=== PATIENT | female | born 1965 | race Caucasian/White ===

== ENCOUNTER → 2016-12-21 10:31 | Emergency (ER) | payer SELFPAY | END | disposition home or self-care (01) | LOC: OHEAST 10:31 → UCEAST 10:31 | DX: Z02.1 Encounter for pre-employment examination (principal) ==

== ENCOUNTER 2017-04-08 16:12 | Emergency (ER) | payer SELFPAY ==
[2017-04-08 16:51] LABS: Hematocrit 40 % (35-47); Hemoglobin 13.1 g/dl (12.0-16.0); Mean Corpuscular HGB Conc 33 g/dl (31-36); Mean Corpuscular Hemoglobin 32 pg (27-31); Mean Corpuscular Volume 96 fL (80-97); Mean Platelet Volume 8 um3 (7.4-10.4); Red Cell Distribution Width 16 % (10.5-15); White Blood Count 6.6 10^3/ul (3.5-10.8)
[2017-04-08 17:03] LABS: ALT 15 U/L (7-52); AST 25 U/L (13-39); Albumin 4.4 g/dL (3.2-5.2); Alkaline Phosphatase 69 U/L (34-104); Anion Gap 16 mmol/L (2-11); BUN/Creatinine Ratio 22.9 (8-20); Blood Urea Nitrogen 19 mg/dL (6-24); CO2 Carbon Dioxide 21 mmol/L (22-32); Calcium 8.8 mg/dL (8.6-10.3); Chloride 104 mmol/L (101-111); EGFR African American 93.6 (>60); EGFR Non-African American 72.8 (>60); Globulin 2.6 g/dL (2-4); Glucose 89 mg/dL (70-100); Potassium 3.9 mmol/L (3.5-5.0); Sodium 141 mmol/L (133-145)
[2017-04-08 17:05] LABS: Urine Bacteria Absent (Absent); Urine Bilirubin Negative (Negative); Urine Glucose Negative (Negative); Urine Nitrite Negative (Negative)
[2017-04-08 17:10] LABS: Benzodiazepine Urine Screen None Detected (None Detect)
[2017-04-08 17:24] LABS: Acetaminophen < 15 mcg/mL; Alcohol 257 mg/dL (<10); Salicylate < 2.50 mg/dL (<30)
[2017-04-08 17:35] LABS: TSH (Thyroid Stimulating Horm) 0.79 mcIU/mL (0.34-5.60)
--- NOTE | 2017-04-08 18:11 | RAD ---
INDICATION: Head injury. COMPARISON: There are no prior studies available for comparison. TECHNIQUE: Contiguous axial sections of the brain were obtained from the skull base to the vertex without contrast. FINDINGS: The ventricles, cisterns and sulci are within normal limits. There is a roughly round 1 cm area of increased density in the medial right temporal lobe suggestive of a small area of intraparenchymal hemorrhage. No mass effect is seen. There is also a small amount of subarachnoid hemorrhage present in a posterior right parietal sulcus at the vertex. No other focal abnormalities are seen. No significant focal osseous abnormality is seen. The visualized portion of the paranasal sinuses and mastoid air cells appear clear. IMPRESSION: THERE IS A FOCAL AREA OF INCREASED DENSITY IN THE MEDIAL RIGHT TEMPORAL LOBE MOST CONSISTENT WITH A SMALL AREA OF PARENCHYMAL HEMORRHAGE. THIS IS AN UNUSUAL LOCATION FOR HEMORRHAGE THEREFORE RECOMMEND FOLLOW-UP STUDIES TO RESOLUTION TO EXCLUDE UNDERLYING LESION. THERE IS ALSO A SMALL AREA OF SUBARACHNOID HEMORRHAGE PRESENT AT THE VERTEX IN THE POSTERIOR RIGHT PARIETAL LOBE.
--- NOTE | 2017-04-08 20:44 | ED ---
Emilia Tripathi Edward, scribed for Mack Ogden MD on 04/08/17 at 1624 . Psychiatric Complaint - HPI Summary HPI Summary: 51 y/o female brought in by police c/o SI. The patient was fired at her job today. 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 When the police arrived at her residence, the patient became aggressive and threw things at the officer while screaming hysterically and slamming the door shut. The police then put her in handcuffs. Per EMS, the pt would have periods of aggression immediately followed by periods of calm where she said she just wanted to go swimming. Associated sx: aggression, hostility towards police. Pt recently moved from [place] and is previously healthy. - History Of Current Complaint Time Seen by Provider: 04/08/17 16:19 Hx Obtained From: Patient, EMS, Other: - Police Hx Last Menstrual Period: NA Onset/Duration: Lasting Hours Character: Fearful, Anxious Aggravating Factor(s): Recent Stress - Recently fired Associated Signs And Symptoms: Positive: Hostile Has Suicidal: Reports: Thoughts - Allergies/Home Medications Allergies/Adverse Reactions: Allergies Allergy/AdvReac Type Severity Reaction Status Date / Time No Known Allergies Allergy Verified 12/21/16 12:24 PMH/Surg Hx/FS Hx/Imm Hx Previously Healthy: Yes - Surgical History Surgery Procedure, Year, and Place: None Infectious Disease History: No - Social History Occupation: Unemployed Lives: Alone - Recently moved from [place] Alcohol Use: Occasionally Hx Substance Use: No Substance Use Type: Reports: None Hx Tobacco Use: No Smoking Status (MU): Never Smoked Tobacco Review of Systems Constitutional: Negative Eyes: Negative ENT: Negative Cardiovascular: Negative Respiratory: Negative Gastrointestinal: Negative Genitourinary: Negative Musculoskeletal: Negative Skin: Negative Neurological: Negative Psychological: Other - SI, aggressive, hostile (per police) All Other Systems Reviewed And Are Negative: Yes Physical Exam Triage Information Reviewed: Yes Vital Signs On Initial Exam: Initial Vitals Temp Pulse Resp BP 98.4 F 92 20 116/82 04/08/17 17:26 04/08/17 17:26 04/08/17 17:26 04/08/17 17:26 Vital Signs Reviewed: Yes Appearance: Positive: Well-Appearing, No Pain Distress Skin: Positive: Warm, Skin Color Reflects Adequate Perfusion, Dry Head/Face: Positive: Normal Head/Face Inspection Eyes: Positive: Normal ENT: Positive: Normal ENT inspection Neck: Positive: Supple, Nontender Respiratory/Lung Sounds: Positive: Clear to Auscultation, Breath Sounds Present Cardiovascular: Positive: RRR Abdomen Description: Positive: Nontender, Soft Bowel Sounds: Positive: Present Musculoskeletal: Positive: Normal Neurological: Positive: Normal Psychiatric: Positive: Other - Labile affect Diagnostics - Vital Signs Vital Signs Temp Pulse Resp BP Pulse Ox 04/08/17 17:32 98.4 F 92 20 116/78 98 04/08/17 17:26 98.4 F 92 20 116/82 - Laboratory Lab Results: Lab Results 04/08/17 04/08/17 04/08/17 Range/Units 16:35 16:35 16:45 WBC 6.6 (3.5-10.8) 10^3/ul RBC 4.10 (4.0-5.4) 10^6/ul Hgb 13.1 (12.0-16.0) g/dl Hct 40 (35-47) % MCV 96 (80-97) fL MCH 32 H (27-31) pg MCHC 33 (31-36) g/dl RDW 16 H (10.5-15) % Plt Count 306 (150-450) 10^3/ul MPV 8 (7.4-10.4) um3 Neut % (Auto) 70.1 (38-83) % Lymph % (Auto) 23.3 L (25-47) % Schley % (Auto) 3.8 (1-9) % Eos % (Auto) 0.8 (0-6) % Baso % (Auto) 2.0 (0-2) % Absolute Neuts (auto) 4.7 (1.5-7.7) 10^3/ul Absolute Lymphs (auto) 1.5 (1.0-4.8) 10^3/ul Absolute Monos (auto) 0.3 (0-0.8) 10^3/ul Absolute Eos (auto) 0.1 (0-0.6) 10^3/ul Absolute Basos (auto) 0.1 (0-0.2) 10^3/ul Absolute Nucleated RBC 0 10^3/ul Nucleated RBC % 0 Sodium 141 (133-145) mmol/L Potassium 3.9 (3.5-5.0) mmol/L Chloride 104 (101-111) mmol/L Carbon Dioxide 21 L (22-32) mmol/L Anion Gap 16 H (2-11) mmol/L BUN 19 (6-24) mg/dL Creatinine 0.83 (0.51-0.95) mg/dL Est GFR ( Amer) 93.6 (>60) Est GFR (Non-Af Amer) 72.8 (>60) BUN/Creatinine Ratio 22.9 H (8-20) Glucose 89 (70-100) mg/dL Calcium 8.8 (8.6-10.3) mg/dL Total Bilirubin 0.30 (0.2-1.0) mg/dL AST 25 (13-39) U/L ALT 15 (7-52) U/L Alkaline Phosphatase 69 (34-104) U/L Total Protein 7.0 (6.4-8.9) g/dL Albumin 4.4 (3.2-5.2) g/dL Globulin 2.6 (2-4) g/dL Albumin/Globulin Ratio 1.7 (1-3) TSH 0.79 (0.34-5.60) mcIU/mL Beta HCG, Quant 0.84 mIU/mL Urine Color Yellow Urine Appearance Clear Urine pH 5.0 (5-9) Ur Specific [place] 1.018 (1.010-1.030) Urine Protein Negative (Negative) Urine Ketones Trace H (Negative) Urine Blood 1+ H (Negative) Urine Nitrate Negative (Negative) Urine Bilirubin Negative (Negative) Urine Urobilinogen Negative (Negative) Ur Leukocyte Esterase 1+ H (Negative) Urine WBC (Auto) 1+(6-10/hpf) H (Absent) Urine RBC (Auto) Trace(0-2/hpf) (Absent) Ur Squamous Epith Cells Present H (Absent) Urine Bacteria Absent (Absent) Hyaline Casts Present H (Absent) Urine Glucose Negative (Negative) Salicylates < 2.50 (<30) mg/dL Urine Opiates Screen (None Detect) Acetaminophen < 15 mcg/mL Ur Barbiturates Screen (None Detect) Ur Phencyclidine Scrn (None Detect) Ur Amphetamines Screen (None Detect) U Benzodiazepines Scrn (None Detect) Urine Cocaine Screen (None Detect) U Cannabinoids Screen (None Detect) Serum Alcohol 257 H (<10) mg/dL 04/08/17 Range/Units 16:45 WBC (3.5-10.8) 10^3/ul RBC (4.0-5.4) 10^6/ul Hgb (12.0-16.0) g/dl Hct (35-47) % MCV (80-97) fL MCH (27-31) pg MCHC (31-36) g/dl RDW (10.5-15) % Plt Count (150-450) 10^3/ul MPV (7.4-10.4) um3 Neut % (Auto) (38-83) % Lymph % (Auto) (25-47) % Schley % (Auto) (1-9) % Eos % (Auto) (0-6) % Baso % (Auto) (0-2) % Absolute Neuts (auto) (1.5-7.7) 10^3/ul Absolute Lymphs (auto) (1.0-4.8) 10^3/ul Absolute Monos (auto) (0-0.8) 10^3/ul Absolute Eos (auto) (0-0.6) 10^3/ul Absolute Basos (auto) (0-0.2) 10^3/ul Absolute Nucleated RBC 10^3/ul Nucleated RBC % Sodium (133-145) mmol/L Potassium (3.5-5.0) mmol/L Chloride (101-111) mmol/L Carbon Dioxide (22-32) mmol/L Anion Gap (2-11) mmol/L BUN (6-24) mg/dL Creatinine (0.51-0.95) mg/dL Est GFR ( Amer) (>60) Est GFR (Non-Af Amer) (>60) BUN/Creatinine Ratio (8-20) Glucose (70-100) mg/dL Calcium (8.6-10.3) mg/dL Total Bilirubin (0.2-1.0) mg/dL AST (13-39) U/L ALT (7-52) U/L Alkaline Phosphatase (34-104) U/L Total Protein (6.4-8.9) g/dL Albumin (3.2-5.2) g/dL Globulin (2-4) g/dL Albumin/Globulin Ratio (1-3) TSH (0.34-5.60) mcIU/mL Beta HCG, Quant mIU/mL Urine Color Urine Appearance Urine pH (5-9) Ur Specific [place] (1.010-1.030) Urine Protein (Negative) Urine Ketones (Negative) Urine Blood (Negative) Urine Nitrate (Negative) Urine Bilirubin (Negative) Urine Urobilinogen (Negative) Ur Leukocyte Esterase (Negative) Urine WBC (Auto) (Absent) Urine RBC (Auto) (Absent) Ur Squamous Epith Cells (Absent) Urine Bacteria (Absent) Hyaline Casts (Absent) Urine Glucose (Negative) Salicylates (<30) mg/dL Urine Opiates Screen None detected (None Detect) Acetaminophen mcg/mL Ur Barbiturates Screen None detected (None Detect) Ur Phencyclidine Scrn None detected (None Detect) Ur Amphetamines Screen None detected (None Detect) U Benzodiazepines Scrn None detected (None Detect) Urine Cocaine Screen None detected (None Detect) U Cannabinoids Screen None detected (None Detect) Serum Alcohol (<10) mg/dL Result Diagrams: 04/08/17 16:35 04/08/17 16:35 Lab Statement: Any lab studies that have been ordered have been reviewed, and results considered in the medical decision making process. - CT BRAIN CT CT Interpretation: Positive (See Comments) - THERE IS A FOCAL AREA OF INCREASED DENSITY IN THE MEDIAL RIGHT TEMPORAL LOBE MOST CONSISTENT WITH A SMALL AREA OF PARENCHYMAL HEMORRHAGE. THIS IS AN UNUSUAL LOCATION FOR HEMORRHAGE THEREFORE RECOMMEND FOLLOW-UP STUDIES TO RESOLUTION TO EXCLUDE UNDERLYING LESION. THERE IS ALSO A SMALL AREA OF SUBARACHNOID HEMORRHAGE PRESENT AT THE VERTEX IN THE POSTERIOR RIGHT PARIETAL LOBE. CT Interpretation Completed By: Radiologist Course/Dx - Course Course Of Treatment: Ms. Soriano was brought in as a 941 after getting fired from her job today, calling them repeatedly and expressing possible suicidality , and getting restrained by the police. She was found to be intoxicated here and at one point vomited. She then reported hitting the right side of her head during the restraint. She was nontender with no sign of trauma still but CT was obtained which showed a small parenchymal hemorrhage and a small SAH. Dr. Moise was contacted and reviewed the CT. He recommended admission for observation and repeat CT. Unfortunately, he is leaving for vacation and would not be available for her so recommended transfer. Anna was contacted but was on diversion and Dr. Aguilera at [facility] accepted her. She will be sent by ground and has been very stable here for 4 hours. - Differential Dx/Clinical Impression Provider Diagnosis: Subarachnoid hemorrhage, Cerebral parenchymal hemorrhage, Alcohol intoxication Discharge - Discharge Plan Condition: Stable Disposition: TRANS HIGHER LVL OF CARE FAC Referrals: No Primary Care Phys,NOPCP [Primary Care Provider] - The documentation as recorded by the Emilia levin Edward accurately reflects the service I personally performed and the decisions made by me, Mack Ogden MD.
== END 2017-04-08 21:24 | disposition short-term general hospital (02) ==
LOC: ED 16:12
DX: I60.9 Nontraumatic subarachnoid hemorrhage, unspecified (principal); I61.9 Nontraumatic intracerebral hemorrhage, unspecified; Z04.8 Encounter for examination and observation for other specified reasons; Z32.02 Encounter for pregnancy test, result negative; R45.851 Suicidal ideations; R45.5 Hostility; F10.129 Alcohol abuse with intoxication, unspecified; Y90.8 Blood alcohol level of 240 mg/100 ml or more
CPT/HCPCS: 36415; 70450; 80053; 80307; 80320; 80329; 81003; 81015; 84443; 84702; 85025; 87086; 99285; G0480

== ENCOUNTER 2018-08-30 05:11 | Emergency (ER) | payer SELFPAY ==
[2018-08-30] MEDS ORDERED: oxyCODONE/Acetamin 5/325 MG* TAB PO ONE (05:24)
--- NOTE | 2018-08-30 05:31 | ED ---
Upper Extremity Pain - HPI Summary HPI Summary: This patient is a 53 year old F presenting to [facility] with a chief complaint of left wrist swelling and pain with mild deformity. Patient reports history of night terrors and she believes she hit her arm on her night stand during a night terror. Pain is 3/10 upon triage. - History of Current Complaint Chief Complaint: EDExtremityUpper Stated Complaint: LEFT WRIST INJURY Time Seen by Provider: 08/30/18 05:20 Hx Obtained From: Patient Hx Last Menstrual Period: NA Mechanism Of Injury: Unknown Onset/Duration: Started Hours Ago Timing: Constant Severity Initially: Moderate Severity Currently: Moderate Pain Location: Forearm Alleviating Factor(s): Nothing Associated Signs & Symptoms: Positive: Swelling - Allergies/Home Medications Allergies/Adverse Reactions: Allergies Allergy/AdvReac Type Severity Reaction Status Date / Time No Known Allergies Allergy Verified 12/21/16 12:24 PMH/Surg Hx/FS Hx/Imm Hx Opthamlomology History: Denies: Hx Legally Blind EENT History: Denies: Hx Deafness Psychiatric History: Reports: Other Psychiatric Issues/Disorders - night terrors - Surgical History Surgery Procedure, Year, and Place: None Infectious Disease History: No Infectious Disease History: Denies: Traveled Outside the [place] in Last 30 Days - Family History Known Family History: Positive: Non-Contributory - Social History Alcohol Use: Occasionally Hx Substance Use: No Substance Use Type: Reports: None Hx Tobacco Use: No Smoking Status (MU): Never Smoked Tobacco Review of Systems Constitutional: Negative Negative: Fever Positive: Myalgia - left wrist pain All Other Systems Reviewed And Are Negative: Yes Physical Exam - Summary Physical Exam Summary: Appearance: Well-appearing, Well-nourished, lying in bed comfortably Skin: Warm, dry, no obvious rash Eyes: sclera anicteric, no conjunctival pallor ENT: mucous membranes moist, pharynx appears normal Neck: Supple, nontender Respiratory: Clear to auscultation, no signs of respiratory distress Cardiovascular: Normal S1, S2. No murmurs. Normal distal pulses in tibial and radial bilaterally. Abdomen: Soft, nontender, normal active bowel sounds present Musculoskeletal: Strength/ROM Intact, Right wrist swollen and tender with dorsal angulation deformity Neurological: A&Ox3, awake and alert, mentation is normal, speech is fluent and appropriate Psychiatric: affect is normal, does not appear anxious or depressed Triage Information Reviewed: Yes Vital Signs On Initial Exam: Initial Vitals Temp Pulse Resp BP Pulse Ox 97.3 F 93 22 121/98 98 08/30/18 05:14 08/30/18 05:14 08/30/18 05:14 08/30/18 05:14 08/30/18 05:14 Vital Signs Reviewed: Yes Procedures - Procedure Summary Procedure Summary: Hematoma block with a mix of Epinepherine and Lidocaine, 3cc injected into hematoma - Splinting left wrist Location: left forearm Pre-Made Type: OCL Material Pre-Proc Neuro Vasc Exam: normal Post-Proc Neuro Vasc Exam: normal Diagnostics - Vital Signs Vital Signs Temp Pulse Resp BP Pulse Ox 08/30/18 05:14 97.3 F 93 22 121/98 98 - Laboratory Lab Statement: Any lab studies that have been ordered have been reviewed, and results considered in the medical decision making process. - Radiology L Wrist XR Radiology Interpretation Completed By: ED Physician Summary of Radiographic Findings: Colles fracture with minimal impactment and displacement Course/Dx - Course Course Of Treatment: 53 year old F presenting to [facility] with a chief complaint of left wrist swelling and pain with mild deformity. Patient reports history of night terrors and she believes she hit her arm on her night stand during a night terror. Upon exam left wrist is swollen and tender with dorsal angulation deformity. XR reveals colles fracture with minimal impaction and displacement. A hematoma block performed with a mi of bupivicaine and lidocaine with epi, injected 3cc into hematoma. Left forearm splinted with OCL material. Patient is given oxycodone for pain. Patient is instructed to follow up with Dr. St, to ice/elevate the wrist, and to stagger her Xanax and Oxycodone prescription to prevent heavy sedation. - Diagnoses Provider Diagnoses: Colles' fracture of left radius, initial encounter for closed fracture Discharge - Sign-Out/Discharge Documenting (check all that apply): Patient Departure - dishcharge - Discharge Plan Condition: Good Disposition: HOME Prescriptions: oxyCODONE/Acetamin 5/325 MG* [Percocet 5/325 TAB*] 1 tab PO Q4H PRN #15 tab MDD 6 tabs PRN Reason: Pain Patient Education Materials: Wrist Fracture in Adults (ED) Referrals: Stephon St MD [Medical Doctor] - Additional Instructions: Please contact Dr. St' office this morning to arrange an appt for early next week. They usually will put a cast on you once the swelling has come down over the weekend. Keep the arm elevated as much as possible and ice it frequently, that will help with swelling and pain as well. Stagger your xanax and the pain medication so you don't get too sedated, they should not be taken within a couple of hours of each other. - Billing Disposition and Condition Condition: GOOD Disposition: Home - Attestation Statements Document Initiated by Cameron: Yes Documenting Scribe: Yesica Cao Provider For Whom Cameron is Documenting (Include Credential): Mack Beard MD Scribe Attestation: I, Yesica Cao, scribed for Mack Beard MD on 08/30/18 at 1834. Scribe Documentation Reviewed: Yes Provider Attestation: The documentation as recorded by the Yesica levin accurately reflects the service I personally performed and the decisions made by me, Mack Beard MD Status of Scribe Document: Viewed
[2018-08-30 06:59] VITALS: BP 134/77
== END 2018-08-30 06:45 | disposition home or self-care (01) ==
LOC: ED 05:11
DX: S52.532A Colles' fracture of left radius, initial encounter for closed fracture (principal); W22.03XA Walked into furniture, initial encounter; Y92.9 Unspecified place or not applicable; R60.9 Edema, unspecified
CPT/HCPCS: 25680; 99282; A9270-GY

== ENCOUNTER 2018-09-11 07:09 | Inpatient (IN) | payer MEDICAID ==
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
[2018-09-11 07:58] LABS: ABS Basophils 0.1 10^3/ul (0-0.2); ABS Eosinophils 0.1 10^3/ul (0-0.6); ABS Lymphocytes 1.3 10^3/ul (1.0-4.8); ABS Nucleated RBC 0 10^3/ul; Eosinophil % 0.9 %; Hematocrit 36 % (35-47); Hemoglobin 12.1 g/dl (12.0-16.0); Lymphocyte % 11.1 %; Mean Corpuscular HGB Conc 33 g/dl (31-36); Mean Corpuscular Hemoglobin 35 pg (27-31); Mean Corpuscular Volume 105 fL (80-97); Mean Platelet Volume 7.6 fL (7.4-10.4); Nucleated Red Blood Cells % 0; Platelet Count 285 10^3/ul (150-450); Red Blood Count 3.47 10^6/ul (4.00-5.40); Red Cell Distribution Width 15 % (10.5-15); White Blood Count 11.4 10^3/ul (3.5-10.8)
[2018-09-11 08:11] LABS: ALT 18 U/L (7-52); AST 32 U/L (13-39); Albumin 3.8 g/dL (3.2-5.2); Albumin/Globulin Ratio 1.3 (1-3); Alkaline Phosphatase 67 U/L (34-104); Anion Gap 16 mmol/L (2-11); Blood Urea Nitrogen 16 mg/dL (6-24); CO2 Carbon Dioxide 18 mmol/L (22-32); Calcium 9.8 mg/dL (8.6-10.3); Chloride 101 mmol/L (101-111); EGFR Non-African American 75.3 (>60); Glucose 84 mg/dL (70-100); Potassium 3.9 mmol/L (3.5-5.0); Sodium 135 mmol/L (135-145); Total Protein 6.8 g/dL (6.4-8.9)
[2018-09-11 08:14] LABS: Urine Appearance Cloudy; Urine Bacteria Absent (Absent); Urine Bilirubin 2+ (Negative); Urine Blood Negative (Negative); Urine Color Amber; Urine Glucose Negative (Negative); Urine Ketones 2+ (Negative); Urine Nitrite Negative (Negative); Urine Protein 2+(100 mg/dL) (Negative); Urine Red Blood Cell Absent (Absent); Urine Specific Gravity 1.028 (1.010-1.030); Urine Urobilinogen Negative (Negative); Urine White Blood Cell 3+(>20/hpf) (Absent)
[2018-09-11 08:21] LABS: Barbiturates Urine Screen None Detected (None Detect); Benzodiazepine Urine Screen None Detected (None Detect); Urine Cannabinoids Screen None Detected (None Detect)
[2018-09-11 08:48] LABS: Acetaminophen < 15 mcg/mL; Alcohol < 10 mg/dL (<10); Salicylate < 2.50 mg/dL (<30)
[2018-09-11 09:04] LABS: TSH (Thyroid Stimulating Horm) 2.22 mcIU/mL (0.34-5.60)
[2018-09-11] MEDS ORDERED: Al Hydrox/Mg Hydrox/Simet LIQ* 30 ML UDC PO PRN (11:57)
[2018-09-11] MEDS ORDERED: Haloperidol TAB* 5 MG PO PRN (11:59)
[2018-09-11] MEDS ORDERED: hydrOXYzine HCL TAB* 50 MG PO PRN (12:00)
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
[2018-09-11] MEDS: Propranolol TAB* 40 MG PO SCH ×2 (18:03→20:23)
[2018-09-11] MEDS: Acetaminophen TAB* 325 MG PO PRN (20:23)
--- NOTE | 2018-09-12 00:19 | EEG ---
ELECTROENCEPHALOGRAPHY: DATE OF STUDY: 09/11/18 REFERRING PHYSICIAN: Dr. Cueva. LOCATION: She is in the emergency room. CLINICAL PROBLEM: The patient called the police because of seeing animals and perhaps people in her home. She was recently prescribed some new medications. MEDICATIONS: Current medications listed include: 1. Hydroxyzine. 2. Haloperidol. 3. Citalopram. 4. Propranolol. REPORT: This 16-channel EEG is remarkable for background rhythms consisting of a occipital rhythm of about 8.5 to 9 cycles per second, which is symmetric. Abundant bifrontal beta rhythms are seen bifrontally. Movement artifact is seen episodically throughout the recording. Activation procedures are not attempted. The patient laughs spontaneously late in the recording and then makes a fairly tangential statement to the anaesthetic technician. There are no other clinical events. There are no focal, lateralized, or epileptiform abnormalities. CLINICAL IMPRESSION: Normal awake EEG. [id number]/[facility] #: [id number] MTDD
[2018-09-12] MEDS: Acetaminophen TAB* 325 MG PO PRN ×2 (07:40→12:46)
[2018-09-12] MEDS ORDERED: Citalopram TAB* 20 MG PO SCH (09:00)
[2018-09-12] MEDS: Propranolol TAB* 40 MG PO SCH ×2 (09:04→20:16)
[2018-09-12] MEDS ORDERED: Calcium Carbonate CHEW TAB* 500 MG (TUMS) PO PRN (11:16)
[2018-09-12] MEDS: DULoxetine DR CAP* 60 MG CAP.DR PO SCH (12:45)
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
--- NOTE | 2018-09-12 14:49 | HP ---
HISTORY AND PHYSICAL: DATE OF ADMISSION: 09/11/18 SUPERVISING PSYCHIATRIST: Dr. Kojo Harris.* (DICTATED BYCARRIE ESPINOZA NP) JUSTIFICATION FOR ADMISSION: The patient presented to the emergency department via police due to numerous 911 calls that included delusional statements and auditory and visual hallucinations. While in the emergency department, she was evaluated by Neurology and deemed appropriate for psychiatric admission. The patient merits hospitalization for immediate safety and stabilization. CHIEF COMPLAINT: "I took an oxycodone and now I am here." HISTORY OF PRESENT ILLNESS: Berna is a 53-year-old white female with a history of depression and anxiety, who presented to the emergency department in a psychotic state. Today, she is well related, alert and oriented with no reports of psychotic symptoms. She reports a history of being sensitive to prescription medications. She is awaiting surgery for wrist fracture and was prescribed oxycodone. She states that she took this medicine for the first time a few nights ago and woke up at 3 a.m. in the midst of a sleep wake state. She states this happened again prior to presentation. She identifies that she was likely in a dream state, but awake. She thought someone was in her trailer and she reported seeing strange people and made bizarre statements about her cats being mimes. The patient reports a history of being prescribed Zoloft as early as 1999 and noted an onset of tremor. This was changed to Celexa and she is continued to have the tremor since then. She is prescribed propranolol, which is mildly effective. The patient denies a history of suicidal ideation or self-harm. She denies a history of HI, or aggression. She endorses severe insomnia and generalized anxiety. The patient relates that in March 2017, police were given wrong information during a welfare check. During this encounter, the patient had stayed home from work and her employer called for a welfare check. She initially did not let the police come in due to being guarded and then police showed up with more resulting in her being aggressively apprehended. She states that she was having a nightmare about that incident when she sustained an injury to her wrist. She is scheduled to have surgical repair today. While in the emergency room, the patient was assessed by Neurology due to new presentation. They obtained an EEG and ruled out current seizure activity. The patient denies obsessions or compulsions. She denies phobias other than generalized anxiety. She denies a history of gila. She denies having access to firearms. She denies auditory or visual hallucinations and there are no perceptual disturbances noted today. PAST PSYCHIATRIC HISTORY: The patient denies history of inpatient psychiatric treatment. She reports seeing a private therapist from 1999 to 2011 after her father . She reports seeing a neurologist in the past for migraine headaches as well as depression. She is not currently in outpatient therapy, but is hoping to be reconnected. PSYCHIATRIC MEDICATION HISTORY: Sertraline stopped due to tremor, citalopram, propranolol, alprazolam p.r.n. TRAUMA ABUSE HISTORY: The patient denies history of abuse. Her mother of colon cancer when the patient was 16 years old. Her father in 1999 of myocardial infarction and interaction with police in March 2017 as stated above. PAST MEDICAL HISTORY: History of migraine headaches, history of GERD. PAST SURGICAL HISTORY: None other than colonoscopy. PRIMARY CARE PROVIDER: MADHURI Dickinson, in [place]. CURRENT MEDICATIONS: 1. Oxycodone 5 mg p.o. q.6 hours p.r.n. 2. Propranolol 40 mg p.o. b.i.d. 3. Ondansetron 8 mg p.o. p.r.n. nausea. 4. Citalopram 20 mg daily. 5. Alprazolam 0.25 mg p.o. b.i.d. p.r.n. FAMILY PSYCHIATRIC HISTORY: The patient reports her family are all "worriers." She denies other known mental health history in the family. SOCIAL HISTORY: The patient is the youngest of 3 daughters by parents who were until her mother . She graduated high school and is highly educated. She has an MFA in [employer] and a master's in her education. 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 Her sister lives in the area and Berna relocated to this area early 2016. She is never , has no children. She identifies as heterosexual, is not currently dating. She denies a history of legal or involvement. She denies taoist affiliation. She reports alcohol use 2 glasses twice a week. She denies marijuana, tobacco or other substance use. REVIEW OF SYSTEMS: Constitutional: Negative. No fever, chills or fatigue. ENT : Negative. Cardiovascular: Negative. Denies chest pain or palpitations. Respiratory: Negative. Denies shortness of breath or cough. Genitourinary: Negative. Musculoskeletal: Positive for essential tremor. Neurological: Negative. PHYSICAL EXAMINATION GENERAL: The patient is well appearing and well nourished. VITAL SIGNS: T 97.7, P 85, respiration rate 16, O2 sat 100%, BP 104/58. HEENT: Normal head and face inspection. Eyes positive. EOMI, PERRL. Conjunctivae clear. NECK: Supple. Full ROM. Trachea midline. RESPIRATORY: Lung sounds clear to auscultation. Breath sounds present. CARDIOVASCULAR: Heart, RRR. Pulses are symmetrical in both upper and lower extremities. MUSCULOSKELETAL: Normal strength. ROM intact. Positive bilateral hand tremor. NEUROLOGICAL: Normal sensory and motor intact. Alert and oriented x3. Normal gait. Cerebellar function intact. SKIN: Warm and dry. Color reflects adequate perfusion. LABORATORY DATA: CBC noteworthy for elevated WBC and low RBC 11.4 and 3.47, MCV 105, MCH 35, absolute neutrophils 9.0, absolute mono 1.0. Chemistry: Carbon dioxide 18, anion gap 16, otherwise within normal limits. TSH normal at 2.22. Urinalysis: Positive for proteins, ketones, bilirubin, leukocyte esterase , wbc, squamous epithelial cells, crystals, and hyaline casts. Toxicology negative for salicylates, acetaminophen or alcohol. Urine drug screen is negative, which is consistent with patient report. MENTAL STATUS EXAM: The patient is a 53-year-old white female, thin framed, petite, who appears younger than stated age. She is well groomed. She is adequately groomed, wearing casual clothing from unit donations. She sits in chair opposite to interviewer, is pleasant and cooperative, appears to be a good historian. She is alert and oriented x3. Eye contact is good. Speech is soft, articulate and quivery. Mood is anxious with congruent affect. Bilateral hand tremor present. Thought process is logical, coherent. Thought content is negative for SI, HI, or passive wish. She denies auditory or visual hallucinations. She is well related. Insight and judgment are fair. Fund of knowledge is excellent. DIAGNOSES: Medication-induced psychosis, resolved; post-traumatic stress disorder; major depressive disorder with anxious distress. ASSESSMENT: Berna is a 53-year-old white female who relocated to the area almost 2 years ago. She presented to the ED with acute onset psychosis. She reports this was likely due to oxycodone as she is sensitive to medications. She reports that her sister worries about alcohol use. She denies this is problematic. While in the emergency department, she was evaluated by Neurology and received an EEG. The patient reports significant traumatic event regarding police in March 2017. She states that she was having a nightmare about this interaction when she broke her wrist 3 weeks ago. She was scheduled to have surgery today. She reports a history of therapy and that this was helpful to her. She is eager to be connected to mental health services in this area. In the meantime, she is agreeable to remain hospitalized for diagnostic clarification and stabilization. PLAN: The patient is admitted to adult behavioral services unit on involuntary status. Her code status is full. She is placed on 15-minute checks for her safety. She is encouraged to participate in supportive milieu, individual sessions with staff and educational groups. We will obtain an MMPI for diagnostic clarification. We will consider changing to an SNRI to better target anxiety along with depression and assess effect on tremor. We will consider tapering propranolol if tremor improves. The patient denies pain medications other than ibuprofen. I have spoken with Dr. Jean Baptiste through orthopedist, she will receive a consult today and will need to reschedule surgery. I would like to obtain a clean catch midstream urine sample to assess validity of previous urine sample and consider treatment for UTI. Estimated length of stay is 4 to 5 days. Discharge planning will include referral to outpatient mental health services and coordination with current outpatient providers. CARRIE ESPINOZA, TOMAS [id number]/[facility] #: [id number] GIL
[2018-09-12] MEDS: Ibuprofen TAB* 800 MG PO PRN (20:15)
[2018-09-13 08:13] LABS: HDL Cholesterol 56.2 mg/dL
[2018-09-13] MEDS: DULoxetine DR CAP* 60 MG CAP.DR PO SCH (08:41)
[2018-09-13] MEDS: Propranolol TAB* 40 MG PO SCH ×2 (08:41→20:34)
[2018-09-13] MEDS: Ibuprofen TAB* 800 MG PO PRN ×2 (08:42→17:48)
[2018-09-14] MEDS: Ibuprofen TAB* 800 MG PO PRN ×3 (08:22→21:23)
[2018-09-14] MEDS: DULoxetine DR CAP* 60 MG CAP.DR PO SCH (08:22)
[2018-09-14] MEDS: Propranolol TAB* 40 MG PO SCH ×2 (08:22→21:20)
[2018-09-15] MEDS: Ibuprofen TAB* 800 MG PO PRN ×3 (07:26→23:25)
[2018-09-15] MEDS: DULoxetine DR CAP* 60 MG CAP.DR PO SCH (08:52)
[2018-09-15] MEDS: Propranolol TAB* 40 MG PO SCH ×2 (12:06→21:36)
--- NOTE | 2018-09-15 14:00 | PN ---
Subjective - Subjective Date of Service: 09/15/18 Service Type: 32446 Hosp care 15 min low complexity Subjective: Patient seen for Ngoc Hodges NP. Patient reports " I am fine". She is worried that her appointment will be made before tomorrow. She worries about her ortho appointment and how she may react to pain medication if she has to get surgery. Patient reports attending to group. She reports eating and sleeping adequately. No overnight events or PRN medications. Denied suicidal and or homicidal ideation intent or plan. Objective - Appearance Appearance: Healthy Appearing Dysmorphic Features: No Hygiene: Normal Grooming: Fairly Well Kept - Behavior Psychomotor Activities: Normal Exhibits Abnormal Movement: No - Attitude and Relatedness Attitude and Relatedness: Cooperative Eye Contact: Fair - Speech Quality: Unpressured Latencies: Normal Quantity: Appropriate - Mood Patient's Decription of Mood: "Fine" - Affect Observed Affect: Non-labile Affect Consistent with: Euthymia - Thought Process Patient's Thought Process: Coherent Thought Content: No Passive Wish, No Suicidal Planning, No Homicidal Ideation, No Paranoid Ideation - Sensorium Experiencing Hallucinations: No, Sensorium is Clear Type of Hallucinations: Visual: No, Auditory: No, Command: No - Level of Consciousness Level of Consciousness: Alert Orientation: Yes Intact, Yes Orientated to Place, Yes Orientated to Person - Impulse Control Impulse Control: Intact - Insight and Judgement Insight and Judgement: Fair - Group Participation Particating in Group Activities: Yes - Medication Management Medication Management Adherence: Yes Assessment - Assessment Merits Inpatient Hospitalization: For Immediate Safety Clinical Impression: 53 year old female came to the ED after calling 911 making delusional statements. She has been compliant with treatment and plans to be discharged tomorrow. Plan - Plan Treatment Plan: Name: SALVADOR AYALA Birthdate: 1965 [id number] Patient continues to require psychiatric inpatient admission for immediate safety. Continue duloxetine 60mg daily and propranolol 40mg BID. Plan for discharge tomorrow. Continued Medication Management: Continue Outpt Medication Medications: Current Medications Acetaminophen (Tylenol Tab*) 650 mg PO Q4H PRN PRN Reason: for pain; or Temp >101 F Last Admin: 09/12/18 12:46 Dose: 650 mg Calcium Carbonate (Tums*) 500 mg PO Q4H PRN PRN Reason: INDIGESTION Duloxetine HCl (Cymbalta Cap*) 60 mg PO DAILY [facility] Last Admin: 09/15/18 08:52 Dose: 60 mg Haloperidol (Haldol Tab*) 5 mg PO Q6H PRN PRN Reason: AGITATION Hydroxyzine HCl (Atarax Tab*) 50 mg PO Q6H PRN PRN Reason: ANXIETY Ibuprofen (Motrin Tab*) 800 mg PO Q8H PRN PRN Reason: PAIN Last Admin: 09/15/18 07:26 Dose: 800 mg Propranolol HCl (Inderal Tab*) 40 mg PO BID [facility] Last Admin: 09/15/18 12:06 Dose: 40 mg - Discharge Plan Discharge Plan: Inpatient Hospitalization
[2018-09-16] MEDS: Ibuprofen TAB* 800 MG PO PRN (08:09)
[2018-09-16] MEDS: DULoxetine DR CAP* 60 MG CAP.DR PO SCH (08:10)
[2018-09-16 08:37] VITALS: BP 92/63
[2018-09-16] MEDS: Propranolol TAB* 40 MG PO SCH (10:45)
--- NOTE | 2018-09-17 10:00 | DS ---
CC: [facility]; Dr. Stephon St; Dr. Bipin Cueva; Radha Acosta NP DISCHARGE SUMMARY: DATE OF ADMISSION: 09/11/18 DATE OF DISCHARGE: 09/16/18 SUPERVISING PSYCHIATRIST: Dr. Kojo Harris. DISCHARGE DIAGNOSIS: Major depressive disorder with anxious distress and brief opioid-induced psychotic disorder. CONDITION AT TIME OF DISCHARGE: The patient is euthymic with bright affect. She is well related. Since admission to [facility], she has been calm and in behavioral control and oriented to reality. She identifies brief use of opioid pain medicine as a cause for altered mental status. She reported a history of depression and anxiety. She reported a longstanding tremor since trialing sertraline in the past. She presented with a prescription of citalopram. Due to low efficacy, she was agreeable to switch to an SNRI for depression and anxiety. She denied side effects. She reported relief in anxiety. She did not need p.r.n. medications. She reports readiness to be discharged and follow up with orthopedic surgeon. She denies suicidal ideation, homicidal or violent ideation. She was safe on all checks and reports readiness for discharge. MENTAL STATUS EXAM: The patient is a 53-year-old white female, thin framed, petite, who appears younger than stated age. She is well groomed and wearing casual clothing. She sits in a chair opposite to the interviewer, is pleasant and cooperative. The patient is a good historian. She answers questions fully. She is alert and oriented x3. Eye contact is good. Speech is soft and articulate. Mood is euthymic with a bright affect. No abnormal psychomotor activity noted. The patient reports a sensation of tremor consistent with history. Thought process is logical, goal directed, and coherent. Thought content is negative for SI, HI, or passive wish. She denies auditory or visual hallucination. She is well related and there are no perceptual disturbances noted. Insight and judgment are good. Fund of knowledge is excellent. INSTRUCTIONS GIVEN TO THE PATIENT: A. Medications: 1. Duloxetine DR 60 mg p.o. daily. 2. Ibuprofen 800 mg p.o. q.8 hours p.r.n. pain. 3. Propranolol 40 mg p.o. b.i.d. B. Diet: Regular. C. Activity: Ambulation as tolerated and per orthopedic surgeon. Tobacco cessation is not applicable. There are no pending labs or diagnostic studies in regards to Psychiatry. D. Followup care: She will follow up with [facility] and has an intake on 09/17/18 at 1:15 p.m. She will also follow up with Dr. St, orthopedic surgeon, on the morning of 09/17/18. She can follow up with her primary care provider, Radha Acosta, as needed. She requested to follow up with neurologist seen in the ED and was given an appointment with Dr. Bipin Cueva on 11/19/18. E. Substance use: Followup is not applicable. HOSPITAL COURSE: Part A: Reason for admission: The patient presented to the emergency department via police due to numerous 911 calls that included delusional statements and auditory and visual hallucination. While in the emergency department, she was evaluated by Neurology and deemed appropriate for psychiatric admission. Please see full H and P dictated by typewriter assembler. Part B: Psychiatric treatment rendered: The patient was admitted on involuntary status. Her code status was full. She was placed on 15-minute checks for safety. This was quickly decreased to 30-minute observation. She participated in supportive milieu, individual sessions with staff, and psychoeducational groups. The patient tolerated switching from citalopram to duloxetine to better target anxiety and assess effect on tremor. The patient reports continuing tremor sensation. She stated she would like to follow up with the neurologist that she had seen in the ED, Dr. Bipin Cueva. We obtained an appointment through his office for 11/19/18. Upon arrival, the patient had already been scheduled to have fracture repair of her wrist through Dr. Jean Baptiste. As she was here, we spoke with Dr. Jean Baptiste and the patient was consulted by Dr St with plan to reevaluate for surgery after discharge. Throughout the course of admission, the patient was euthymic and in behavioral control. She was pleasant and cooperative. She was kind to her peers. She reported appreciation for hospitalization in that she received assistance with initiating insurance. She states she met people that were in similar situations and she coordinated with her landlord to improve her living space. The patient denied suicidal ideation, homicidal ideation, or violent ideation. Due to obligation to treat in least restrictive setting, discharge was decided upon by treatment team. The patient was given discharge instructions by nursing staff and given information on how to call this unit with any questions after discharge. CARRIE ESPINOZA NP [id number]/[facility] #: [id number]
== END 2018-09-16 12:30 | disposition home or self-care (01) | DRG 754 ==
LOC: ED 07:09 → BSU 17:23
PROVIDERS: ADMIT Psychiatry & Neurology Psychiatry; ATTEND Psychiatry & Neurology Psychiatry
DX: F32.9 Major depressive disorder, single episode, unspecified (principal); F11.951 Opioid use, unspecified with opioid-induced psychotic disorder with hallucinations; S52.502A Unspecified fracture of the lower end of left radius, initial encounter for closed fracture; F41.8 Other specified anxiety disorders; K21.9 Gastro-esophageal reflux disease without esophagitis; G43.909 Migraine, unspecified, not intractable, without status migrainosus; G25.0 Essential tremor; F43.10 Post-traumatic stress disorder, unspecified; W22.03XA Walked into furniture, initial encounter; Z79.899 Other long term (current) drug therapy; Z80.0 Family history of malignant neoplasm of digestive organs; Z82.49 Family history of ischemic heart disease and other diseases of the circulatory system; Y92.9 Unspecified place or not applicable
CPT/HCPCS: 36415; 70450; 80053; 80061; 80307; 80320; 80329; 81003; 81015; 83036; 84443; 85025; 87086; 95816; 99222; 99231; 99284; A9270-GY; G0480

== ENCOUNTER 2019-02-08 05:52 | Emergency (ER) | payer MEDICAID, OTHER ==
[2019-02-08] MEDS ORDERED: DOXYcycline CAP(*) 100 MG PO ONE (06:22)
--- NOTE | 2019-02-08 06:33 | ED ---
Skin Complaint - HPI Summary HPI Summary: Patient is a 53-year-old female with history of depression and anxiety presenting to the ED with concern for a tick bite. She noticed the tick bite this morning into her right axillary area with a small amount of erythema surrounding. She denies any neurologic symptoms, headaches, pain. She states she believes she got the tick approximate 4 days ago when she was gardening. When she pulled a tick off this morning, the tick was black very small, not engorged and states "had no blood in it." She was concerned however due to the small rash which formed around the area. Denies hx of tick bites or lyme. - History of Current Complaint Chief Complaint: EDGeneral Time Seen by Provider: 02/08/19 06:00 Stated Complaint: TICK BITE PER PT Hx Obtained From: Patient Hx Last Menstrual Period: NA Onset/Duration: Started Hours Ago Skin Exposure Onset/Duration: Hours Ago Timing: Constant Onset Severity: Mild Current Severity: Mild Pain Intensity: 0 Pain Scale Used: 0-10 Numeric Skin Location: Other: - right axillary area Character: Redness Aggravating Symptom(s): Nothing Alleviating Symptom(s): Nothing - Additional Pertinent History Primary Care Physician: ARTEM - Allergy/Home Medications Allergies/Adverse Reactions: Allergies Allergy/AdvReac Type Severity Reaction Status Date / Time oxycodone Allergy Hallucinati Verified 02/08/19 06:01 ons Home Medications: Home Medications Primidone TAB(*) [Mysoline TAB(*)] 50 mg PO DAILY 02/08/19 [History Confirmed ] PMH/Surg Hx/FS Hx/Imm Hx Previously Healthy: Yes GI History: Reports: Hx Gastroesophageal Reflux Disease - OCCASIONALLY, Hx Hiatal Hernia - POSSIBLY Musculoskeletal History: Reports: Other Musculoskeletal History - current fx. in L. hand. Has splint + yarelis bandage Sensory History: Denies: Hx Contacts or Glasses, Hx Legally Blind, Hx Deafness, Hx Hearing Aid Opthamlomology History: Denies: Hx Contacts or Glasses, Hx Legally Blind Neurological History: Reports: Hx Headaches - HX OF -NO PROBLEMS SINCE STARTING MEDICATION FOR, Hx Migraine - ROUTINE MEDICATION FOR Denies: Other Neuro Impairments/Disorders Psychiatric History: Reports: Hx Anxiety - ON ROUTINE MEDICATION - HX OF PANIC ATTACKS, Hx Depression, Other Psychiatric Issues/Disorders - Night terrors Denies: Hx of Violent Episodes Against Others - Surgical History Surgery Procedure, Year, and Place: COLONOSCOPY Hx Anesthesia Reactions: No - Immunization History Hx Pertussis Vaccination: No Immunizations Up to Date: Yes Infectious Disease History: No Infectious Disease History: Denies: Traveled Outside the [place] in Last 30 Days - Family History Known Family History: Positive: Non-Contributory Negative: Blood Disorder - Social History Occupation: Unemployed Lives: Alone Alcohol Use: Occasionally Alcohol Amount: COUPLE OF GLASSES OF WINE WEEKLY Hx Substance Use: No Substance Use Type: Reports: None Hx Tobacco Use: No Smoking Status (MU): Never Smoked Tobacco Have You Smoked in the Last Year: No Review of Systems Negative: Fever, Chills, Fatigue, Skin Diaphoresis Negative: Palpitations, Chest Pain Negative: Shortness Of Breath Negative: Arthralgia Positive: Other - 1.5cm reaction rash/blanchable petetchia to the R axillary area Neurological: Negative Positive: Anxious, Depressed All Other Systems Reviewed And Are Negative: Yes Physical Exam Triage Information Reviewed: Yes Vital Signs On Initial Exam: Initial Vitals Temp Pulse Resp BP Pulse Ox 97.3 F 73 18 131/90 100 02/08/19 05:53 02/08/19 05:53 02/08/19 05:53 02/08/19 05:53 02/08/19 05:53 Vital Signs Reviewed: Yes Appearance: Positive: Well-Appearing, Well-Nourished Skin: Positive: Skin Color Reflects Adequate Perfusion, Other - 1.5cm reaction rash/blanchable petetchia to the R axillary area Head/Face: Positive: Normal Head/Face Inspection Eyes: Positive: EOMI, Conjunctiva Clear Neck: Positive: No Lymphadenopathy Respiratory/Lung Sounds: Positive: Clear to Auscultation, Breath Sounds Present Cardiovascular: Positive: RRR, Pulses are Symmetrical in both Upper and Lower Extremities Musculoskeletal: Positive: Normal, Strength/ROM Intact Neurological: Positive: Speech Normal Psychiatric: Positive: Affect/Mood Appropriate Diagnostics - Vital Signs Vital Signs Temp Pulse Resp BP Pulse Ox 02/08/19 05:53 97.3 F 73 18 131/90 100 - Laboratory Lab Statement: Any lab studies that have been ordered have been reviewed, and results considered in the medical decision making process. Course/Dx - Course Course Of Treatment: Physical examination, there is approximately 1.5 cm in diameter small erythematous area resembling a allergic reaction rash consistent with a tick bite. This does not appear to be an EM rash. This is not some 1, not warm. Patient denies any pain. Patient states the tick was not engorged, however most likely a deer tick. Patient states she has anxiety over this and has been crying all morning. Discussed treatment options with patient. Patient was like to have the 200 mg prophylactic doxycycline at this time. Patient was given information on lyme disease and prophylactic treatment. He will follow up with [facility] she no longer has a PCP. - Diagnoses Provider Diagnoses: Tick bite Discharge - Sign-Out/Discharge Documenting (check all that apply): Patient Departure Patient Received Moderate/Deep Sedation with Procedure: No - Discharge Plan Condition: Stable Disposition: HOME Patient Education Materials: Tick Bite (ED) Referrals: [facility] [Outside] Radha Acosta NP [Nurse Practitioner] - Additional Instructions: Please see attached - Billing Disposition and Condition Condition: STABLE Disposition: Home
[2019-02-08 07:02] VITALS: BP 130/82
== END 2019-02-08 06:35 | disposition home or self-care (01) ==
LOC: ED 05:52
DX: S40.861A Insect bite (nonvenomous) of right upper arm, initial encounter (principal); W57.XXXA Bitten or stung by nonvenomous insect and other nonvenomous arthropods, initial encounter; Y93.H2 Activity, gardening and landscaping; Y92.007 Garden or yard of unspecified non-institutional (private) residence as the place of occurrence of the external cause; G43.909 Migraine, unspecified, not intractable, without status migrainosus; F41.9 Anxiety disorder, unspecified; Z88.5 Allergy status to narcotic agent
CPT/HCPCS: 99282; A9270-GY

== ENCOUNTER 2019-04-06 04:45 | Observation (INO) | payer OTHER ==
[2019-04-06] MEDS ORDERED: LORazepam INJ* 2 MG/ML 1 ML VIAL IV PUSH ONE (05:04)
[2019-04-06] MEDS ORDERED: Metoclopramide IV* 5 MG/ML 2 ML VIAL IV SLOW PU ONE (05:04)
[2019-04-06] MEDS ORDERED: NS 0.9% 1000 ML** 2,000 ML IV ONE (05:04)
[2019-04-06] MEDS ORDERED: Lorazepam PYXIS KEY PRN (05:04)
[2019-04-06] MEDS ORDERED: Acetaminophen SUPP* 650 MG SUPP PR ONE (05:05)
[2019-04-06] MEDS ORDERED: Pantoprazole IV* 40 MG IV ONE (05:05)
--- NOTE | 2019-04-06 05:05 | ED ---
Complex/Multi-Sys Presentation - HPI Summary HPI Summary: Patient is a 53 y/o F presenting to ED with complaints of abdominal pain, N/V, constipation and shaking. Patient had a fever and cough six days ago. These Sx resolved three days ago. Current Sx onset two days ago, 04/04/19, in the evening around 2200. She notes no recent similar episodes. Abdominal pain is characterized as a cramping. She notes warm shower alleviated Sx temporarily. On triage, pain is rated 5/10. Home medications and allergies are reviewed. - History Of Current Complaint Chief Complaint: EDNauseaVomitDiarrh Time Seen by Provider: 04/06/19 04:54 Hx Obtained From: Patient Onset/Duration: Lasting Days, Still Present Timing: Constant, Days Severity Currently: Moderate Severity Initially: Moderate Location: Pain At: - abdomen Aggravating Factor(s): nothing Alleviating Factor(s): warm shower Associated Signs And Symptoms: Positive: Cough, Nausea, Vomiting, Abdominal Pain , Fever, Other - positive - constipation and shaking - Allergies/Home Medications Allergies/Adverse Reactions: Allergies Allergy/AdvReac Type Severity Reaction Status Date / Time oxycodone Allergy Hallucinati Verified 04/06/19 04:50 ons PMH/Surg Hx/FS Hx/Imm Hx GI History: Reports: Hx Gastroesophageal Reflux Disease - OCCASIONALLY, Hx Hiatal Hernia - POSSIBLY Musculoskeletal History: Reports: Other Musculoskeletal History - current fx. in L. hand. Has splint + yarelis bandage Sensory History: Denies: Hx Contacts or Glasses, Hx Legally Blind, Hx Deafness, Hx Hearing Aid Opthamlomology History: Denies: Hx Contacts or Glasses, Hx Legally Blind Neurological History: Reports: Hx Headaches - HX OF -NO PROBLEMS SINCE STARTING MEDICATION FOR, Hx Migraine - ROUTINE MEDICATION FOR Denies: Other Neuro Impairments/Disorders Psychiatric History: Reports: Hx Anxiety - ON ROUTINE MEDICATION - HX OF PANIC ATTACKS, Hx Depression, Other Psychiatric Issues/Disorders - Night terrors Denies: Hx of Violent Episodes Against Others - Surgical History Surgery Procedure, Year, and Place: COLONOSCOPY Hx Anesthesia Reactions: No Infectious Disease History: No Infectious Disease History: Denies: Traveled Outside the [place] in Last 30 Days - Family History Known Family History: Negative: Blood Disorder - Social History Alcohol Use: Occasionally Alcohol Amount: COUPLE OF GLASSES OF WINE WEEKLY Hx Substance Use: No Substance Use Type: Reports: None Hx Tobacco Use: No Smoking Status (MU): Never Smoked Tobacco Have You Smoked in the Last Year: No Review of Systems Constitutional: Other - positive - shaking Positive: Fever Positive: Cough Gastrointestinal: Other - positive - constipation Positive: Abdominal Pain, Vomiting, Nausea All Other Systems Reviewed And Are Negative: Yes Physical Exam - Summary Physical Exam Summary: VITAL SIGNS: Reviewed. GENERAL: Patient is a well-developed and nourished female who is lying comfortable in the stretcher. Patient is not in any acute respiratory distress. Patient is anxious-appearing and shaking HEAD AND FACE: No signs of trauma. No ecchymosis, hematomas or skull depressions. No sinus tenderness. EYES: PERRLA, EOMI x 2, No injected conjunctiva, no nystagmus. EARS: Hearing grossly intact. Ear canals and tympanic membranes are within normal limits. MOUTH: Oropharynx within normal limits. NECK: Supple, trachea is midline, no adenopathy, no JVD, no carotid bruit, no c- spine tenderness, neck with full ROM CHEST: Symmetric, no tenderness at palpation LUNGS: Clear to auscultation bilaterally. No wheezing or crackles. CVS: Regular rate and rhythm, S1 and S2 present, no murmurs or gallops appreciated. ABDOMEN: Soft, epigastric tenderness is noted. No signs of distention. No rebound no guarding, and no masses palpated. Bowel sounds are normal. EXTREMITIES: FROM in all major joints, no edema, no cyanosis or clubbing. NEURO: Alert and oriented x 3. No acute neurological deficits. Speech is normal and follows commands. SKIN: Dry and warm Triage Information Reviewed: Yes Vital Signs On Initial Exam: Initial Vitals Temp Pulse Resp BP Pulse Ox 100.2 F 107 17 138/80 97 04/06/19 04:45 04/06/19 04:45 04/06/19 04:45 04/06/19 04:45 04/06/19 04:45 Vital Signs Reviewed: Yes Diagnostics - Vital Signs Vital Signs Temp Pulse Resp BP Pulse Ox 04/06/19 04:45 100.2 F 107 17 138/80 97 - Laboratory Result Diagrams: 04/06/19 05:00 04/06/19 05:00 Lab Statement: Any lab studies that have been ordered have been reviewed, and results considered in the medical decision making process. - Radiology CXR Radiology Interpretation Completed By: ED Physician Summary of Radiographic Findings: No acute process, pending official report. abdominal x-ray Radiology Interpretation Completed By: ED Physician Summary of Radiographic Findings: No acute process, pending official report. Re-Evaluation - Re-Evaluation First Eval Re-Evaluation Time: 06:41 Comment: Results of labs and tests were discussed so far. Patient denies alcohol or substance usage. Complex Multi-Symp Course/Dx Course Of Treatment: Patient is a 53 y/o F presenting to ED with complaints of abdominal pain, N/V, constipation and shaking. Patient had a fever and cough six days ago. These Sx resolved three days ago. Current Sx onset two days ago, , in the evening around 2200. She notes no recent similar episodes. Abdominal pain is characterized as a cramping. She notes warm shower alleviated Sx temporarily. On physical exam, patient is noted to be anxious-appearing and shaking. Epigastric tenderness is noted as well. Labs showed MCV 99, MCH 34, absolute neuts 9, absolute lymphs 0.7, INR 0.79, sodium 134, chloride 97, carbon dioxide 10, anion gap 27, creatinine 1.03, glucose 113, lactic acid 2.2, amylase 191. During ED course, patient received protonix 40 mg IV, reglan 10 mg IV, Ativan 1 mg IV, Tylenol sup 650 mg [place], and fluids. ABG showed pH 7.26, pCO2 20, pO2 104, HCO3 12.5, O2 Sat 98.6, base excess -15.9. UA showed 1+ protein, 2 + ketones, 1+ blood, trace RBC, hyaline casts present. CXR and abdominal x-ray showed no acute process. Patient is signed-out to Dr. Mendez at 0700 04/06/19 shift change pending repeat labs. - Diagnoses Provider Diagnoses: Vomiting, Acidosis Discharge - Sign-Out/Discharge Documenting (check all that apply): Sign-Out Patient Signing out patient TO: Landy Mendez - Discharge Plan Condition: Stable Referrals: No Primary Care Phys,NOPCP [Medical Doctor] - - Attestation Statements Document Initiated by Scribe: Yes Documenting Scribe: MIGUELANGEL THACKER Provider For Whom Scribe is Documenting (Include Credential): SUJEY LOVE MD Scribe Attestation: MIGUELANGEL Tripathi, scribed for SUJEY LOVE MD on 04/06/19 at 0653. Status of Scribvasile Document: Ready
[2019-04-06] MEDS ORDERED: Lorazepam PYXIS KEY ONE (05:16)
[2019-04-06 05:40] LABS: ABS Basophils 0.1 10^3/ul (0-0.2); ABS Lymphocytes 0.7 10^3/ul (1.0-4.8); ABS Monocytes 0.5 10^3/ul (0-0.8); Hematocrit 40 % (35-47); Hemoglobin 13.8 g/dL (12.0-16.0); Lymphocyte % 6.5 %; Mean Corpuscular HGB Conc 34 g/dL (31-36); Mean Corpuscular Hemoglobin 34 pg (27-31); Mean Corpuscular Volume 99 fL (80-97); Platelet Count 304 10^3/uL (150-450); Red Blood Count 4.07 10^6 /uL (3.70-4.87); Red Cell Distribution Width 14 % (10-15); White Blood Count 10.3 10^3/uL (3.5-10.8)
[2019-04-06 05:52] LABS: Activated Partial Thrombo Time 36.4 seconds (26.0-38.0); INR 0.79 (0.82-1.09)
[2019-04-06 05:59] LABS: Albumin 5.1 g/dL (3.2-5.2); Albumin/Globulin Ratio 1.8 (1-3); BUN/Creatinine Ratio 16.5 (8-20); C Reactive Protein 1.31 mg/L (<8.01); Calcium 9.8 mg/dL (8.6-10.3); EGFR African American 68.1 (>60); EGFR Non-African American 56.3 (>60); Globulin 2.9 g/dL (2-4); Total Bilirubin 0.8 mg/dL (0.2-1.0)
[2019-04-06 06:13] LABS: Potassium 4.8 mmol/L (3.5-5.0)
[2019-04-06 06:32] LABS: Urine Appearance Clear; Urine Bacteria Absent (Absent); Urine Bilirubin Negative (Negative); Urine Blood 1+ (Negative); Urine Color Yellow; Urine Glucose Negative (Negative); Urine Ketones 2+ (Negative); Urine Nitrite Negative (Negative); Urine Protein 1+(30 mg/dL) (Negative); Urine Red Blood Cell Trace(0-2/hpf) (Absent); Urine Specific Gravity 1.018 (1.010-1.030); Urine Urobilinogen Negative (Negative); Urine White Blood Cell Absent (Absent)
[2019-04-06] MEDS ORDERED: NS 0.9% 1000 ML** 1,000 ML IV SCH (07:00)
--- NOTE | 2019-04-06 07:09 | ED ---
Progress - Progress Note Progress Note: Pt is a signout from Dr. Harrison at 0700 on 04/06/19 pending repeat labs. Re-Evaluation - Re-Evaluation First Eval Re-Evaluation Time: 06:41 Course/Dx - Course Course Of Treatment: Pt is a signout from Dr. Harrison at 0700 on 04/06/19 pending repeat labs. Pts secondary lab results show a CO2 level of 13. They also show an Anion Gap of 18, Calcium of 8.2, and total protein of 6.2. I spoke with Dr. Allison about the pt at 0750 who will be coming to evaluate her. The pt's dx is metabolic acidosis. I discussed the plan of admission with the patient and she is agreeable with the plan. - Diagnoses Provider Diagnoses: Metabolic acidosis Discharge - Sign-Out/Discharge Documenting (check all that apply): Patient Departure, Receiving Sign-Out Receiving patient FROM: Wili Harrison - Discharge Plan Condition: Stable Disposition: ADMITTED TO [facility] - Billing Disposition and Condition Condition: STABLE Disposition: Admitted to [facility] - Attestation Statements Document Initiated by Shailaibe: Yes Documenting Scribe: Amarilis Cheatham Provider For Whom Cameron is Documenting (Include Credential): Landy Mendez MD. Scribe Attestation: IAmarilis, scribed for Landy Mendez MD. on 04/06/19 at 1244. Scribe Documentation Reviewed: Yes Provider Attestation: The documentation as recorded by the scribeAmarilis accurately reflects the service I personally performed and the decisions made by me, Caroline Mendez MD. Status of Scribe Document: Viewed Consult Consult: 0750 - I discussed the pt's current condition with the hospitalist, Dr. Allison.
[2019-04-06 07:39] LABS: Albumin/Globulin Ratio 1.8 (1-3); BUN/Creatinine Ratio 16.7 (8-20); Calcium 8.2 mg/dL (8.6-10.3); EGFR African American 79.6 (>60); EGFR Non-African American 65.8 (>60); Globulin 2.2 g/dL (2-4); Potassium 4.6 mmol/L (3.5-5.0); Total Bilirubin 0.6 mg/dL (0.2-1.0); Total Protein 6.2 g/dL (6.4-8.9)
[2019-04-06] MEDS ORDERED: NS 0.9% 1000 ML** 1,000 ML IV ONE (07:53)
[2019-04-06 08:36] LABS: Urine Benzodiazepine Screen None Detected (None Detect); Urine Opiates Screen None Detected (None Detect)
[2019-04-06] MEDS ORDERED: Ondansetron INJ* 2 MG/ML VIAL IV PRN (10:06)
[2019-04-06] MEDS: Lactated Ringers 1000 ML Bag* 1,000 ML IV SCH ×2 (11:54→23:14)
[2019-04-06] MEDS: Enoxaparin(*) 40 MG/0.4 ML SYR SUBCUT SCH (11:55)
--- NOTE | 2019-04-06 13:06 | HP ---
HISTORY AND PHYSICAL: DATE OF ADMISSION: 04/06/19 PRIMARY CARE PROVIDER: Dr. Radha Acosta. ATTENDING PHYSICIAN: Nikolay Allison MD * (dictated by ODESSA Davila). CHIEF COMPLAINT: Vomiting. HISTORY OF PRESENT ILLNESS: Ms. Soriano is a 53-year-old female with past medical history of depression and anxiety who presented to the ER today with complaints of vomiting since 10 p.m. on Saturday. She notes that 6 days ago, she had cough, malaise, headache, and fever which lasted 2 days and has since resolved. T-max was 102 during this time. She notes that 2 days ago, she was developing stomach cramps which prompted her to have a light breakfast and light supper consisting of vegetable soup and a piece of toast. She then began to vomit around 10:00 p.m. The patient states that she was vomiting every 20 to 60 minutes and was unable to get any sleep that night. The following day, she continued to experience vomiting. Her only oral intake was tea and ice chips to attempt to stay hydrated. She notes that her emesis was bilious on Saturday. She denies hematemesis. She again notes that she has had decreased oral intake, but has attempted to stay hydrated. She drinks weekly and notes that her last alcohol intake was two glasses of white wine on Saturday. She denies suicidal ideation or ingestion of any irregular substances including methanol, ethylene glycol, aspirin, or acetaminophen. She notes that urine output has been fair and notes that she has attempted to stay hydrated. She has not experienced any diarrhea. Her last bowel movement was yesterday. Again , her last fever was 4-6 days ago and T-max was 102. She denies any recent ingestion of spoiled foods. She denies recent travel or ill contacts. She notes that her last episode of vomiting was 5:00 a.m. this morning upon arrival to the ER. While in the emergency department, the patient received a full workup which included blood work revealing a respiratory acidosis, metabolic acidosis, and a lactic acidosis. Her temperature is 100.2. Her chest x-ray revealed no evidence of cardiopulmonary disease. Abdominal x-ray revealed nonspecific bowel gas pattern. In the ER, she received 2 L of IV fluids, Ativan, Tylenol suppository, Reglan, Protonix. The hospitalist team was asked to evaluate the patient for admission. PAST MEDICAL HISTORY: 1. Depression. 2. Anxiety. 3. Essential tremor. PAST SURGICAL HISTORY: Left wrist. HOME MEDICATIONS: 1. Propranolol 40 mg p.o. b.i.d. 2. Primidone 50 mg p.o. daily. 3. Duloxetine 60 mg p.o. daily. DRUG ALLERGIES: OXYCODONE, hallucinations. FAMILY HISTORY: Father from [place] at age 66. Mother from colon cancer at age 47. Sister has a medical history of seizures. There is no family history of diabetes mellitus or CVA. SOCIAL HISTORY: The patient states she drinks approximately 4 to 5 drinks per week. She does not and has never used tobacco. She does not use illicit drugs. 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 She lives home alone. In the event that she is unable to make her own medical decisions, she has appointed her friend, Bryan Hartley, to be her surrogate decision maker. REVIEW OF SYSTEMS: A 10-point review of systems was performed and all the pertinent positives and negatives are in the HPI. All other systems are negative. PHYSICAL EXAMINATION GENERAL: Ms. Soriano is a well-developed, well-nourished, thin, middle-aged white woman who is sitting up in bed. She appears to be in no acute distress. VITAL SIGNS: Temperature 100.2, heart rate 89, respiratory rate 16, oxygen saturation 100% on room air, blood pressure 103/73. HEENT: Visual carr grossly intact. PERRL. EOMI. Nonicteric sclerae. Hearing grossly intact. Oral mucous membranes are moist. There are no lesions. Pharynx is clear. RESPIRATORY: Symmetrical chest expansion without use of accessory muscles. Lungs clear to auscultation without rhonchi, wheezes or rubs. CARDIOVASCULAR: Regular rate and rhythm with S1 and S2 present, without murmurs , rubs, clicks, or gallops. There is no JVD. ABDOMEN: Flat. Bowel sounds noted in all quadrants. The abdomen is soft. There is no tenderness to palpation. There is no rebound tenderness. Nontender at McBurney point. Negative psoas. MUSCULOSKELETAL: Full range of motion without pain for deformities. NEURO: The patient is awake. She is alert and oriented x3 with cranial nerves grossly intact. She is able to move all of her extremities with a motor strength of 5/5 in bilateral upper and lower extremities. DIAGNOSTIC STUDIES/LAB DATA: ABG; pH 7.26, PCO2 of 20, PO2 of 104, HCO3 of 12.5, O2 saturation 98.6, base excess negative 15.9, carbon dioxide 13, anion gap 18, lactic acid 2.2 to 1.0. Abdomen x-ray, impression: Nonspecific bowel gas patterns. Chest x-ray, impression: No active cardiopulmonary disease. ASSESSMENT AND PLAN: Ms. Soriano is a 53-year-old female with a past medical history of anxiety and depression who presented to the ER today with complaints of vomiting and was found to have a metabolic acidosis. The patient will be admitted to observation for: 1. Metabolic acidosis. The patient arrives at the ER and is found to have lactic acidosis and a history of decreased oral intake. These are both possible causes of her metabolic acidosis. She denies ingestion of foreign substances or medications. She has no history of diabetes mellitus or recent alcohol use. At this time, the patient has already been given 2 L of IV fluids which has improved her lactic acidosis from 2.2 to 1.0. Her anion gap has also decreased from 27 to 18. At this time, we will continue her on lactated Ringers 100 cc per hour. We will recheck her BMP at 1500. 2. Vomiting. The patient has noted 2 days of vomiting. She has been tolerating ice chips well since this morning. She feels the metoclopramide has improved her nausea and vomiting and notes that she has not vomited for the last approximately 5 hours. An unrestricted diet has been ordered with slow advancement. She has been placed on lactated Ringers for rehydration. 3. Anxiety, depression. Continue duloxetine, propranolol. 4. DVT prophylaxis: According to DVT Risk Assessment, the patient scores 1 placing her at low risk. Lovenox has been ordered. 5. Code status: Full code. TIME SPENT: Approximately 60 minutes was spent on this admission, greater than half that time was spent with the patient obtaining history, performing physical , and reviewing the plan of care. The case has been reviewed with my attending, Dr. Allison, who is in agreement with the plan of care. JUAN WALL, ODESSA [id number]/CPS #: [id number] MTDD
[2019-04-06 16:09] LABS: BUN/Creatinine Ratio 22.7 (8-20); Calcium 8.5 mg/dL (8.6-10.3); EGFR African American 98.2 (>60); EGFR Non-African American 81.1 (>60); Potassium 3.5 mmol/L (3.5-5.0)
[2019-04-06] MEDS: Propranolol TAB* 40 MG PO SCH (22:02)
[2019-04-07] MEDS ORDERED: Lorazepam PYXIS KEY PRN (01:01)
[2019-04-07] MEDS ORDERED: LORazepam INJ* 2 MG/ML 1 ML VIAL IV PUSH ONE (01:05)
[2019-04-07] MEDS ORDERED: DULoxetine DR CAP* 60 MG CAP.DR PO SCH (09:00)
[2019-04-07] MEDS: Propranolol TAB* 40 MG PO SCH (09:25)
[2019-04-07] MEDS: Lactated Ringers 1000 ML Bag* 1,000 ML IV SCH (09:25)
[2019-04-07] MEDS: Enoxaparin(*) 40 MG/0.4 ML SYR SUBCUT SCH (09:25)
[2019-04-07 09:43] LABS: BUN/Creatinine Ratio 12.9 (8-20); EGFR African American 106.3 (>60); EGFR Non-African American 87.9 (>60); Potassium 3.1 mmol/L (3.5-5.0)
[2019-04-07] MEDS: Potassium Chlor TAB* 20 MEQ TAB.ER PO SCH ×2 (11:51→14:25)
[2019-04-07 12:03] VITALS: BP 110/69
--- NOTE | 2019-04-07 14:13 | DS ---
CC: [facility] * DISCHARGE SUMMARY: DATE OF ADMISSION: 04/06/19 DATE OF DISCHARGE: 04/07/19 PRIMARY CARE PROVIDER: [facility]. ATTENDING PHYSICIAN: Dr. Geri Blankenship * (dictated by ODESSA Davila). PRIMARY DIAGNOSES: 1. Vomiting, likely due to gastritis. 2. Metabolic acidosis. 3. Hypokalemia. SECONDARY DIAGNOSES: 1. Depression. 2. Anxiety. 3. Tremor. STUDIES WHILE IN THE HOSPITAL: Abdominal x-ray, impression: Nonspecific bowel gas pattern. Chest x-ray, impression: No active cardiopulmonary disease. DISCHARGE MEDICATIONS: Home medications: 1. Duloxetine DR 60 mg p.o. daily. 2. Primidone 50 mg p.o. daily. 3. Propranolol 4 mg p.o. b.i.d. New home medications: None. HISTORY OF PRESENT ILLNESS/HOSPITAL COURSE: Ms. Soriano is a 53-year-old female with past medical history of depression and anxiety, who presented to the ER yesterday with complaints of vomiting times approximately 2 days. For full and complete details, please see the history and physical dictated by ODESSA Davila but in short, the patient presented with cough, malaise, headache , fever from 6 days ago x2 days, followed by vomiting since for the past 2 days. The patient notes decreased appetite and oral intake for approximately 1 week when this all began. In the emergency department, the patient was found to have a metabolic acidosis. She was admitted and rehydrated with lactated Ringer's. Her lactic acidosis resolved with IV fluids. She had an anion gap metabolic acidosis, which also resolved. It is suspected that this was due to her decreased oral intake over the last approximately 6 days due to feeling ill. She resumed a regular diet overnight. She notes that she had nausea x1 last night but no nausea or vomiting today. She is able to tolerate a breakfast , which consisted of eggs, toast, and yogurt. She notes that these made her feel better. She denies chest pain, headache, vision changes, fever, chills. She does continue to complain of an intermittent dry cough, which she has had for several days. Chest x-ray revealed no evidence of cardiopulmonary disease. Pulmonary physical exam was within normal limits. The patient denies abdominal pain, nausea, vomiting, diarrhea, or constipation. She denies pain in the limbs. Ms. Soriano is stable for discharge. PHYSICAL EXAMINATION: Vital Signs: Temperature 97.8 oral, heart rate 73, respiratory rate 16, oxygen saturation 100% on room air, blood pressure 110/69. General: Ms. Soriano is a well-developed, well-nourished, thin, middle-aged white woman, who is sitting up in bed. She appears somewhat timid and mildly anxious, but in no acute distress. She is pleasant, cooperative, and appropriate. HEENT: PERRL, EOMI. Nonicteric sclerae. Hearing grossly intact. Oral mucous membranes are moist without lesions. Cardiovascular: Regular rate and rhythm with S1, S2 present without murmurs, rubs, clicks, or gallops. There is no JVD. Radial and pedal pulses are palpable. There is no peripheral edema. Pulmonary: Symmetrical chest expansion without use of accessory muscles. Lungs clear to auscultation bilaterally without rhonchi, wheezes, or rubs. There is no digital clubbing or cyanosis. Abdomen: Flat. Bowel sounds normoactive in all quadrants. The abdomen is soft. There is no tenderness to palpation. There is no hepatosplenomegaly. Musculoskeletal: The patient has full range of motion in all extremities without pain or deformity. Neuro: The patient is awake, she is alert and oriented x3 with cranial nerves grossly intact. DISCHARGE PLAN: Ms. Soriano will be discharged to home. CONDITION: Good. ACTIVITY: As tolerated. DIET: Resume home diet. MEDICATIONS: No changes. EDUCATION: 1. Follow up with [facility]; office will call with appointment date and time. Discussed recent hospitalization, BMP, lab results, referral for colonoscopy. 2. Repeat BMP in approximately 3 days, order has been given. 3. Return to the ER or nearest hospital if she experiences any return or worsening of symptoms, chest discomfort, shortness of breath, high fevers, chills, night sweats, dizziness, lightheadedness, loss of consciousness, or any other worrisome signs or symptoms. This is a summarized report of a complex medical history and hospital stay. For further details, please see the entire medical record. TIME SPENT: Approximately 35 minutes was spent on this discharge, greater than half that time was spent [id number] with the patient discussing discharge plans and instructions. ODESSA KWAN [id number]/[facility] #: [id number] [facility] HOSPITALCatherine
== END 2019-04-07 14:45 | disposition home or self-care (01) ==
LOC: ED 04:45 → MED 10:06
PROVIDERS: ADMIT Internal Medicine; ATTEND Hospitalist
DX: R11.10 Vomiting, unspecified (principal); E87.2 Acidosis; E87.6 Hypokalemia; F32.9 Major depressive disorder, single episode, unspecified; F41.9 Anxiety disorder, unspecified; Z79.899 Other long term (current) drug therapy; G25.0 Essential tremor; K21.9 Gastro-esophageal reflux disease without esophagitis
CPT/HCPCS: 36415; 71045; 74019; 80048; 80053; 80307; 81003; 81015; 82150; 82803; 83605; 83690; 83735; 83930; 85025; 85610; 85730; 86140; 87040; 96361; 96372; 96374; 96375; 96376; 99285; A9270-GY; G0378; J1650; J2060; J2405; J2765

== ENCOUNTER 2019-12-15 19:30 | Emergency (ER) | payer OTHER ==
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
[2019-12-15] MEDS ORDERED: Lorazepam PYXIS KEY PRN (20:25)
[2019-12-15] MEDS ORDERED: LORazepam INJ* 2 MG/ML 1 ML VIAL IM ONE (20:25)
[2019-12-15] MEDS ORDERED: Haloperidol INJ IV/IM* 5 MG/ML AMP IM ONE (20:25)
[2019-12-15 21:02] LABS: ABS Basophils 0.1 10^3/ul (0-0.2); ABS Eosinophils 0.2 10^3/ul (0-0.6); ABS Lymphocytes 1.7 10^3/ul (1.0-4.8); ABS Monocytes 0.4 10^3/ul (0-0.8); ABS Neutrophils 1.8 10^3/ul (1.5-7.7); Hematocrit 38 % (35-47); Hemoglobin 12.6 g/dL (12.0-16.0); Lymphocyte % 40.8 %; Mean Corpuscular HGB Conc 33 g/dL (31-36); Mean Corpuscular Hemoglobin 32 pg (27-31); Mean Corpuscular Volume 97 fL (80-97); Mean Platelet Volume 8.1 fL (7.4-10.4); Platelet Count 312 10^3/uL (150-450); Red Blood Count 3.93 10^6 /uL (3.70-4.87); Red Cell Distribution Width 14 % (10-15); White Blood Count 4.2 10^3/uL (3.5-10.8)
--- NOTE | 2019-12-15 21:20 | ED ---
Progress - Progress Note Progress Note: Patient is received as a sign-out from Dr. Villafuerte at 2100 12/15/19 shift end pending MHE of this mental health patient. 1010 - Patient had reported that she had blood in her urine while using ED bathroom. Urine was not visualized. UA showed 1+ protein, 1+ blood, 2+ leukocyte esterase, 3+ WBC, 1+ RBC, present squamous epith cells, hyaline casts , and granular casts. Bactrin Ds 800/160 tab ordered. The patient has been verbally aggressive, agitated, and threatening with staff. Verbal redirection was attempted but unsuccessful. Patient was medicated with Benadryl 50 mg, Haldol 5 mg, and Ativan 2 mg IM. Patient was placed on one-to-one observation. Throughout duration of shift, the patient would intermittently sit up on the stretcher and yell. Staff would come to beside of patient to check on her and the patient would then mumble and return to sleep. Patient is signed-out to Dr. Sanchez at 0700 12/16/19 shift change pending completion of MHE. Re-Evaluation - Re-Evaluation First Eval Re-Evaluation Time: 19:50 - Patient is medically cleared for MHE Course/Dx - Diagnoses Provider Diagnoses: Behavioral problem, UTI (urinary tract infection) - Critical Care Time Critical Care Statement: Critical care time is provided exclusive of any time spent performing procedures. Discharge ED - Sign-Out/Discharge Documenting (check all that apply): Sign-Out Patient, Receiving Sign-Out Signing out patient TO: Ivan Sanchez Receiving patient FROM: Blaise Villafuerte - Discharge Plan Condition: Stable Referrals: Tabitha Mccormick DO [Primary Care Provider] - - Billing Disposition and Condition Condition: STABLE - Attestation Statements Document Initiated by Scribe: Yes Documenting Scribe: MIGUELANGEL THACKER Provider For Whom Scribe is Documenting (Include Credential): HEYDI STOKES MD Scribe Attestation: MIGUELANGEL Tripathi, scribed for HEYDI STOKES MD on 12/16/19 at 0644. Scribe Documentation Reviewed: Yes Provider Attestation: The documentation as recorded by the MIGUELANGEL levin accurately reflects the service I personally performed and the decisions made by me, HEYDI STOKES MD Status of Scribe Document: Viewed - Assessment for Patient Restraint Face to Face Encounter Date: 12/15/19 Face to Face Encounter Time: 23:30 Evaluation of the Patient's Immediate Situation: Patient is loud and aggressive. Patient is yelling, swearing, and being uncooperative. After medication, the patient is sleeping. Patient's Reaction to Intervention: Multiple attempts to deescalate were unsuccessful. Patient responded well to sedation, chemical restraint. Patient's Medication and Behavioral Condition: The patient ended up receiving Benadryl, Ativan, Haldol IM after arrival to the Emergency Department. Patient is resting comfortably.
[2019-12-15 21:40] LABS: Urine Appearance Cloudy; Urine Bilirubin Negative (Negative); Urine Blood 1+ (Negative); Urine Color Yellow; Urine Glucose Negative (Negative); Urine Ketones Negative (Negative); Urine Nitrite Negative (Negative); Urine Protein 1+(30 mg/dL) (Negative); Urine Specific Gravity 1.019 (1.010-1.030); Urine Urobilinogen Negative (Negative)
[2019-12-15 21:42] LABS: ALT 13 U/L (7-52); AST 20 U/L (13-39); Acetaminophen < 15 mcg/mL; Albumin/Globulin Ratio 1.5 (1-3); Alcohol 235 mg/dL (<10); Alkaline Phosphatase 67 U/L (34-104); Anion Gap 8 mmol/L (2-11); BUN/Creatinine Ratio 11.5 (8-20); Blood Urea Nitrogen 9 mg/dL (6-24); CO2 Carbon Dioxide 25 mmol/L (22-32); Calcium 8.6 mg/dL (8.6-10.3); Chloride 110 mmol/L (101-111); EGFR African American 93.5 (>60); EGFR Non-African American 77.3 (>60); Globulin 2.7 g/dL (2-4); Glucose 97 mg/dL (70-100); Potassium 4.5 mmol/L (3.5-5.0); Salicylate < 2.50 mg/dL (<30); Sodium 143 mmol/L (135-145); Total Protein 6.7 g/dL (6.4-8.9)
[2019-12-15 21:43] LABS: Urine Bacteria Absent (Absent); Urine Granular Casts Present (Absent); Urine Red Blood Cell 1+(3-5/hpf) (Absent); Urine Squamous Epithelial Cell Present (Absent); Urine White Blood Cell 3+(>20/hpf) (Absent)
[2019-12-15 21:57] LABS: Urine Benzodiazepine Screen None Detected (None Detect); Urine Opiates Screen Presumptive Positive (None Detect)
[2019-12-15 21:58] LABS: TSH (Thyroid Stimulating Horm) 1.37 mcIU/mL (0.34-5.60)
[2019-12-15] MEDS ORDERED: Sulfamethox/Trimethoprim DS 800/160* TAB PO ONE ×2 (22:09→22:11)
[2019-12-15] MEDS ORDERED: diPHENhydraMINE IV* 50 MG/ML 1 ml VIAL (BENADRYL) IM ONE (22:38)
[2019-12-15] MEDS ORDERED: Lorazepam PYXIS KEY ONE (22:44)
[2019-12-16] MEDS ORDERED: Sulfamethox/Trimethoprim DS 800/160* TAB PO ONE (05:12)
--- NOTE | 2019-12-16 07:23 | ED ---
Progress - Progress Note Progress Note: Patient is received as a sign-out from Dr. Wei at shift change on 12/16/19 at 0700 at shift change pending MHE of this mental health patient. Course/Dx - Course Course Of Treatment: This patient was signed out by Dr. Wei pending mental health evaluation. Patient had a mental health evaluation and her case was reviewed by Dr. Harris, psychiatrist. Per [facility] dining car steward/stewardess, patient will be discharged home. Dx: alcohol induced mood disorder. - Diagnoses Provider Diagnoses: Alcohol-induced mood disorder - Critical Care Time Critical Care Statement: Critical care time is provided exclusive of any time spent performing procedures. Discharge ED - Sign-Out/Discharge Documenting (check all that apply): Patient Departure - Discharge home, Receiving Sign-Out Receiving patient FROM: Mel Wei - Discharge Plan Condition: Stable Disposition: HOME Referrals: Tabitha Mccormick DO [Primary Care Provider] - - Billing Disposition and Condition Condition: STABLE Disposition: Home - Attestation Statements Document Initiated by Scribe: Yes Documenting Scribe: Clari Dean Provider For Whom Shailaibvasile is Documenting (Include Credential): Ivan Sanchez MD Scribe Attestation: Clari Tripathi, scribed for Ivan Sanchez MD on 12/18/19 at 0707. Scribe Documentation Reviewed: Yes Provider Attestation: The documentation as recorded by the Clari levin accurately reflects the service I personally performed and the decisions made by me, Ivan Sanchez MD Status of Scribe Document: Viewed
[2019-12-16 07:49] VITALS: BP 94/69
== END 2019-12-16 10:30 | disposition home or self-care (01) ==
LOC: ED 19:30
DX: F10.94 Alcohol use, unspecified with alcohol-induced mood disorder (principal); N39.0 Urinary tract infection, site not specified; M25.532 Pain in left wrist; M25.531 Pain in right wrist; F41.9 Anxiety disorder, unspecified; Z79.899 Other long term (current) drug therapy; F91.9 Conduct disorder, unspecified
CPT/HCPCS: 36415; 80053; 80307; 80320; 80329; 81003; 81015; 84443; 85025; 87086; 96372; 99285; A9270-GY; G0480; J1200; J1630; J2060

== ENCOUNTER 2020-01-29 15:33 | Observation (INO) ==
[2020-01-29] MEDS ORDERED: fentaNYL 100 mcg/2 ml 50 MCG/ML VIAL IV SLOW PU ONE ×2 (16:08→17:09)
[2020-01-29 18:11] LABS: ABS Basophils 0.1 10^3/ul (0-0.2); ABS Eosinophils 0.1 10^3/ul (0-0.6); ABS Lymphocytes 0.9 10^3/ul (1.0-4.8); ABS Monocytes 0.4 10^3/ul (0-0.8); Eosinophil % 0.5 %; Hematocrit 32 % (35-47); Hemoglobin 11.1 g/dL (12.0-16.0); Mean Corpuscular HGB Conc 34 g/dL (31-36); Mean Corpuscular Hemoglobin 33 pg (27-31); Mean Corpuscular Volume 96 fL (80-97); Mean Platelet Volume 8.7 fL (7.4-10.4); Platelet Count 242 10^3/uL (150-450); Red Blood Count 3.38 10^6 /uL (3.70-4.87); Red Cell Distribution Width 14 % (10-15); White Blood Count 11.7 10^3/uL (3.5-10.8)
[2020-01-29 18:15] LABS: INR 0.97 (0.82-1.09)
[2020-01-29] MEDS ORDERED: Ondansetron 4 mg VIAL 2 MG/ML 2 ml VIAL IV PRN (18:30)
[2020-01-29] MEDS ORDERED: fentaNYL 100 mcg/2 ml 50 MCG/ML VIAL IV SLOW PU PRN (18:33)
[2020-01-29 18:47] LABS: Albumin 3.6 g/dL (3.2-5.2); Calcium 7.9 mg/dL (8.6-10.3); Total Bilirubin 0.2 mg/dL (0.2-1.0)
[2020-01-29 18:53] LABS: BUN/Creatinine Ratio 22.4 (8-20); EGFR African American 111.4 (>60); EGFR Non-African American 92.1 (>60); Globulin 1.8 g/dL (2-4); Total Protein 5.4 g/dL (6.4-8.9)
[2020-01-29] MEDS ORDERED: HYDROcodone/ACETAMIN 5/325 mg TAB PO ONE (20:10)
[2020-01-30] MEDS: Diazepam 5 mg TAB (*) PO PRN ×2 (02:49→12:17)
[2020-01-30 04:50] LABS: ABS Basophils 0.1 10^3/ul (0-0.2); ABS Eosinophils 0.1 10^3/ul (0-0.6); ABS Lymphocytes 1.7 10^3/ul (1.0-4.8); ABS Monocytes 0.6 10^3/ul (0-0.8); Eosinophil % 2.3 %; Hematocrit 29 % (35-47); Lymphocyte % 28.7 %; Mean Corpuscular HGB Conc 34 g/dL (31-36); Mean Corpuscular Hemoglobin 33 pg (27-31); Mean Corpuscular Volume 95 fL (80-97); Mean Platelet Volume 8.6 fL (7.4-10.4); Platelet Count 214 10^3/uL (150-450); Red Blood Count 3.07 10^6 /uL (3.70-4.87); Red Cell Distribution Width 14 % (10-15)
[2020-01-30 08:39] VITALS: BP 97/62
[2020-01-30] MEDS ORDERED: DULoxetine DR 60 mg CAP PO SCH (09:00)
== END 2020-01-30 16:00 | disposition home or self-care (01) ==
LOC: ED 15:33 → SSU 15:33
PROVIDERS: ADMIT Internal Medicine; ATTEND Hospitalist

== ENCOUNTER 2020-02-12 09:42 | Observation (INO) ==
[~2020-02-12 09:42] MED LIST: Lactated Ringers 1000 ml BAG 1,000 ML IV SCH
[2020-02-12] MEDS ORDERED: ceFAZolin 2 GM PREMIX in ORs 2 GM/50 ML BAG ONE (10:36)
[2020-02-12] MEDS ORDERED: Buffered Lidocaine 1% SYRIN 1 ml INTRADERM ONE (11:39)
[2020-02-12] MEDS ORDERED: ROPIVACAINE 5 MG/ML 30 ML BTL (0.5%) ONE (11:50)
[2020-02-12] MEDS ORDERED: Propofol 10 MG/ML 20 ML BTL ONE (13:26)
[2020-02-12] MEDS ORDERED: Lidocaine 2% PF 5 ML VIAL ONE (13:26)
[2020-02-12] MEDS ORDERED: Rocuronium 50 mg VIAL 10 mg/ml 5 ml VIAL (50 mg) ONE (13:27)
[2020-02-12] MEDS ORDERED: Glycopyrrolate IV 0.2 MG/ML 1 ML VIAL ONE (13:29)
[2020-02-12] MEDS ORDERED: Ketamine HCL 50 mg/ml 10 ml VIAL (500 MG) ONE (13:42)
[2020-02-12] MEDS ORDERED: Dexamethasone IV 4 MG/ML VIAL 1 ml VIAL ONE (14:45)
[2020-02-12] MEDS ORDERED: Ondansetron 4 mg VIAL 2 MG/ML 2 ml VIAL ONE (14:45)
[2020-02-12] MEDS ORDERED: fentaNYL 100 mcg/2 ml 50 MCG/ML VIAL ONE (17:07)
[2020-02-12] MEDS ORDERED: Vancomycin(*) 1,000 MG VIAL ONE (17:53)
[2020-02-12] MEDS ORDERED: ceFAZolin VIAL(*) VIAL ONE (18:05)
[2020-02-12] MEDS ORDERED: Lactulose 30 ml UDC PO PRN (18:44)
[2020-02-12] MEDS ORDERED: diPHENhydraMINE IV 50 MG/ML 1 ml VIAL (BENADRYL) IV PRN (18:44)
[2020-02-12] MEDS ORDERED: Ondansetron ODT 4 mg TAB 4 MG TAB PO PRN (18:44)
[2020-02-12] MEDS ORDERED: diPHENhydraMINE 25 mg TAB PO PRN (18:44)
[2020-02-12] MEDS ORDERED: Ondansetron 4 mg VIAL 2 MG/ML 2 ml VIAL IV PRN (18:44)
[2020-02-12] MEDS ORDERED: Magnesium Hydroxide LIQ 30 ML UDC PO PRN (18:44)
[2020-02-12] MEDS ORDERED: Polyethylene Glycol 3350 17 GM PACKET PO PRN (18:44)
[2020-02-12] MEDS ORDERED: Naloxone 0.4 mg VIAL 0.4 mg/ml 1 ml VIAL IV PRN (18:49)
[2020-02-12] MEDS ORDERED: Prochlorperazine 5 mg/ml 2 ml VIAL (10 mg) IV PRN (18:49)
[2020-02-12] MEDS ORDERED: fentaNYL 100 mcg/2 ml 50 MCG/ML VIAL IV PRN (18:49)
[2020-02-12] MEDS: Morphine 4 MG/ML VIAL (1 ml) IV PRN ×4 (19:00→19:15)
[2020-02-12] MEDS ORDERED: Lactated Ringers 1000 ml BAG 1,000 ML IV SCH (19:00)
[2020-02-12] MEDS ORDERED: Morphine 4 MG/ML VIAL (1 ml) ONE (19:16)
[2020-02-12] MEDS ORDERED: LORazepam 1 mg TAB (*) PO SCH (20:00)
[2020-02-12] MEDS ORDERED: HYDROmorphone 0.5 MG/0.5 ML SYRINGE IV SLOW PU PRN (21:48)
[2020-02-12] MEDS: ceFAZolin 1 GM ADVAN(*) 1 GM in NS 0.9% 50 ML 50 ML IVPB SCH (22:40)
[2020-02-13 04:56] LABS: BUN/Creatinine Ratio 26.5 (8-20); Calcium 8.9 mg/dL (8.6-10.3); EGFR African American 109.5 (>60); EGFR Non-African American 90.5 (>60); Potassium 4.8 mmol/L (3.5-5.0)
[2020-02-13 05:07] LABS: Hematocrit 30 % (35-47); Hemoglobin 9.6 g/dL (12.0-16.0); Mean Platelet Volume 8.2 fL (7.4-10.4); Platelet Count 265 10^3/uL (150-450)
[2020-02-13] MEDS: ceFAZolin 1 GM ADVAN(*) 1 GM in NS 0.9% 50 ML 50 ML IVPB SCH ×2 (06:22→13:40)
[2020-02-13] MEDS ORDERED: Vitamin THERAPEUTIC TAB PO SCH (09:00)
[2020-02-13] MEDS ORDERED: Multivitamins/Minerals TAB PO SCH (09:00)
[2020-02-13] MEDS ORDERED: DULoxetine DR 60 mg CAP PO SCH (09:00)
[2020-02-13 13:45] VITALS: BP 98/60
== END 2020-02-13 13:05 | disposition home or self-care (01) ==
LOC: OR 09:42 → SSU 09:42
PROVIDERS: ADMIT Physician Assistant; ATTEND Orthopaedic Surgery